=== PATIENT | female | born 1975 | race Caucasian/White ===

== ENCOUNTER 2017-01-29 22:24 | Emergency (ER) | payer OTHER ==
--- NOTE | 2017-01-29 23:00 | ED NURSING NOTES ---
Clinical Report - Nurses [facility] [address] [place] [address] 01/29/2017 22:23 Patient: NELLY SKINNER TRIAGE Triage time 2225. Acuity: LEVEL 4. Chief Complaint: RIGHT UPPER EXTREMITY PAIN. Alert. No acute distress. --22:38 Ramya Florentino 22:32 01/29/17. BP: 155/94. HR: 87. RR: 16. O2 saturation: 96%. Temp: 97.9 F. Pain level now 10. --22:38 Ramya Florentino. Weight: 147.4 kg. Height/Length: 67 inches. BMI: 50.9. --22:38 Ramya Florentino. Medications Albuterol Sulfate HFA Inhalation. Gabapentin Oral (Capsule 100 mg) 1-3 capsules , daily. Naproxen Oral , last dose 1600. --22:34 Ramya Florentino Ketorolac Tromethamine Oral. --22:34 Ramya Florentino Flexeril. --22:35 Ramya Florentino Lisinopril-Hydrochlorothiazide Oral. --22:35 Ramya Florentino Lasix Oral. --22:35 Ramya Florentino. Allergies Darvocet.(vomiting) morphine.(vomiting) Vicodine.(vomiting) --22:34 Ramya Florentino. History Arrived by private vehicle. Historian: patient. Accompanied by family. No injury occurred. This occurred (3 days ago). Provoking / relieving factors: worsened by movement; relieved by not moving. ( acute exacerbation of chronic pain to right shoulder). --22:38 Ramya Florentino. PROBLEMS: Arthritis. Knee Injury. Bronchitis. Hidradenitis Suppurativa. Hypertension. De Quervain's Disease. Abscess. Lifestyle / Substance Problems. Fall. Contusion. Abrasion(s). Asthma. Back Pain. Acute Pain. --22:36 Ramya Florentino. ADDITIONAL SURGERIES: Cholecystectomy. . Hysterectomy. Laparoscopy. Shoulder Surgery. --22:36 Ramya Florentino. Interventions ID band on patient. To treatment room. --22:38 Ramya Florentino. PHYSICAL ASSESSMENT Ambulatory to room. GENERAL / NEURO / PSYCH: Oriented X 4. Alert. Appears in no acute distress. EXTREMITIES: Neuro-vascular status intact to the extremity. No upper extremity edema. Right shoulder: tenderness. Limited ROM due to pain. SKIN: Skin intact. Skin is warm and dry. --22:38 Ramya Florentino. NURSING PROGRESS NOTES Reassurance given. Call light placed in reach. Bed placed in lowest position. Brakes of bed on. Patient ready for evaluation- chart flagged. --22:39 Ramya Florentino. DISPOSITION / DISCHARGE Departure time: 2315. Condition at departure: unchanged and stable. No learning barriers present. Discharge instructions provided and reviewed with the patient. Reviewed medication(s). Patient verbalized understanding. Written instructions provided in Azeri. The patient was discharged by the nurse practitioner. She was discharged home and accompanied by family. She left the Emergency Department ambulatory and via private vehicle. Patient driving. --23:17 Ramya Florentino. Locked/Released at 01/29/2017 23:17 by Ramya Florentino,
--- NOTE | 2017-01-29 23:00 | ED CLINICAL REPORT ---
Clinical Report - Physicians/Mid Levels [facility] [address] [place] [address] 01/29/2017 22:23 Patient: NELLY SKINNER Time Seen: 22:37; initial patient contact, initial documentation, patient care assumed. Arrived- By private vehicle. Historian- patient. HISTORY OF PRESENT ILLNESS Chief Complaint: UPPER EXTREMITY PAIN. Severity is described as being severe. The quality is noted to be "pain" and similar to prior episodes. No radiation. This started about 8 - 9 months ago and is still present. Modifying factors- worsened by movement of arm. Not made better by anything. Symptoms located in the area of the right shoulder. No chest pain, difficulty breathing, swelling, sensory loss or motor loss. No repetitive hand use at work. She has not had redness. (had surgery on shoulder x10 years ago, spur removal, spur found on mri, intermittent issues over the years and pain started back up in May and has gradually gotten worse and tonight couldn't stand the pain, took toradol she had leftover and it didn't help the pain much). Patient denies an injury. Similar symptoms previously: Chronically. Recent medical care: Not recently seen/assessed. REVIEW OF SYSTEMS All systems otherwise negative, except as recorded above. PAST HISTORY See nurses notes. PROBLEMS: Arthritis. Knee Injury. Bronchitis. Hidradenitis Suppurativa. Hypertension. De Quervain's Disease. Abscess. Lifestyle / Substance Problems. Fall. Contusion. Abrasion(s). Asthma. Back Pain. Acute Pain. --22:36 Ramya Florentino. ADDITIONAL SURGERIES: Cholecystectomy. . Hysterectomy. Laparoscopy. Shoulder Surgery. --22:36 Ramya Florentino. SOCIAL HISTORY Never smoker. No alcohol use or drug use. No recent travel. Is a local resident. She lives with spouse. FAMILY HISTORY Negative. ADDITIONAL NOTES The nursing notes have been reviewed with agreement regarding the chief complaint, HPI, ROS, PMH and patient medications and allergies. PHYSICAL EXAM Vital Signs: 01/29/2017 22:32 BP: 155/94. HR: 87. RR: 16. O2 saturation: 96%. Temp: 97.9 F. Have been reviewed as abnormal and appear to be correct. Hypertensive. Heart rate normal. Respiratory rate normal. Temperature normal. Oxygen saturation normal. Appearance: Alert. Oriented X3. No acute distress. Eyes: Pupils equal, round and reactive to light. Eyes normal inspection. Neck: Normal inspection. Neck supple. Respiratory: No respiratory distress. Skin: Skin intact. Skin warm and dry. Normal skin color. Normal skin turgor. Extremities: Upper extremities abnormal to inspection. Upper extremities do not exhibit normal ROM. Upper extremity tenderness. No upper extremity edema. Right shoulder: moderate tenderness located in the acromion process and AC joint. Limited ROM due to pain (diminished abduction, adduction, flexion, extension and external and internal rotation). Neurovascular intact distally. No erythema, swelling, laceration, abrasion or ecchymosis. No puncture wound, foreign body or deformity. No joint effusion. Extremities otherwise negative. Neuro: Oriented X 3. No motor deficit. No sensory deficit. PROGRESS AND PROCEDURES Course of Care: had discussion with pt why substance abuse issues was listed on her hx, pt denies any issues, wants that taken off her chart because she claims it is an error, looked thru some er charts, can't find anything about substance abuse, pt offered uds to prove she was clean, no stacie report found, offered pt pain pill here, she politely declined saying she had to drive so she did not want anything. Patient counseled in person regarding the patient's stable condition and diagnosis. Differential Diagnosis: I considered degenerative joint disease, arthritis, rheumatoid arthritis, gout, hyperextension, rotator cuff tear, acromioclavicular separation, lateral epicondylitis, tendonitis, myositis, fasciitis and bursitis as a possible cause of upper extremity pain in this patient. This is a partial list of diagnoses considered. Above considerations are based on history and physical exam. Differential diagnosis was discussed with patient. Disposition: Discharged home in good and improved condition (23:00). Condition: good and stable. CLINICAL IMPRESSION Chronic upper extremity pain involving the right shoulder. INSTRUCTIONS Warnings: GENERAL WARNINGS: Return or contact your physician immediately if your condition worsens or changes unexpectedly, if not improving as expected, or if other problems arise. Specifically return if problem worsens. Prescription Medications: Ultram 50 mg tablets: take 1-2 orally every 6 hours as needed for pain. Dispense twenty (20). No refills. Substitution is permissible. Follow-up: Follow up with your doctor in about one week even if well. Call for an appointment. Summary of care provided to patient. Screening today revealed the patient's blood pressure to be in the hypertensive range. The patient should follow up with a primary care provider for blood pressure management. Understanding of the discharge instructions verbalized by patient. (Electronically signed by Dipika Street A.R.N.P. 01/30/2017 12:10)
--- NOTE | 2017-01-29 23:00 | ED NURSING NOTES ---
Clinical Report - Nurses [facility] [address] [place] [address] 01/29/2017 22:23 Patient: NELLY SKINNER TRIAGE Triage time 2225. Acuity: LEVEL 4. Chief Complaint: RIGHT UPPER EXTREMITY PAIN. Alert. No acute distress. --22:38 Ramya Florentino 22:32 01/29/17. BP: 155/94. HR: 87. RR: 16. O2 saturation: 96%. Temp: 97.9 F. Pain level now 10. --22:38 Ramya Florentino. Weight: 147.4 kg. Height/Length: 67 inches. BMI: 50.9. --22:38 Ramya Florentino. Medications Albuterol Sulfate HFA Inhalation. Gabapentin Oral (Capsule 100 mg) 1-3 capsules , daily. Naproxen Oral , last dose 1600. --22:34 Ramya Florentino Ketorolac Tromethamine Oral. --22:34 Ramya Florentino Flexeril. --22:35 Ramya Florentino Lisinopril-Hydrochlorothiazide Oral. --22:35 Ramya Florentino Lasix Oral. --22:35 Ramya Florentino. Allergies Darvocet.(vomiting) morphine.(vomiting) Vicodine.(vomiting) --22:34 Ramya Florentino. History Arrived by private vehicle. Historian: patient. Accompanied by family. No injury occurred. This occurred (3 days ago). Provoking / relieving factors: worsened by movement; relieved by not moving. ( acute exacerbation of chronic pain to right shoulder). --22:38 Ramya Florentino. PROBLEMS: Arthritis. Knee Injury. Bronchitis. Hidradenitis Suppurativa. Hypertension. De Quervain's Disease. Abscess. Lifestyle / Substance Problems. Fall. Contusion. Abrasion(s). Asthma. Back Pain. Acute Pain. --22:36 Ramya Florentino. ADDITIONAL SURGERIES: Cholecystectomy. . Hysterectomy. Laparoscopy. Shoulder Surgery. --22:36 Ramya Florentino. Interventions ID band on patient. To treatment room. --22:38 Ramya Florentino. PHYSICAL ASSESSMENT Ambulatory to room. GENERAL / NEURO / PSYCH: Oriented X 4. Alert. Appears in no acute distress. EXTREMITIES: Neuro-vascular status intact to the extremity. No upper extremity edema. Right shoulder: tenderness. Limited ROM due to pain. SKIN: Skin intact. Skin is warm and dry. --22:38 Ramya Florentino. NURSING PROGRESS NOTES Reassurance given. Call light placed in reach. Bed placed in lowest position. Brakes of bed on. Patient ready for evaluation- chart flagged. --22:39 Ramya Florentino. DISPOSITION / DISCHARGE Departure time: 2315. Condition at departure: unchanged and stable. No learning barriers present. Discharge instructions provided and reviewed with the patient. Reviewed medication(s). Patient verbalized understanding. Written instructions provided in Frisian. The patient was discharged by the nurse practitioner. She was discharged home and accompanied by family. She left the Emergency Department ambulatory and via private vehicle. Patient driving. --23:17 Ramya Florentino. Locked/Released at 01/29/2017 23:17 by Ramya Florentino,
--- NOTE | 2017-01-30 12:10 | ED MAR SUMMARY ---
..... Medication Administration Record [facility] [address] [place], [place] [id number] Patient: NELLY SKINNER Visit ID: [id number] 42y, F Weight: 147.4 kg Height/Length: 67 in BMI: 50.9 ALLERGIES: Darvocet, morphine, Vicodine
--- NOTE | 2017-01-30 12:10 | ED MAR SUMMARY ---
..... Medication Administration Record [facility] [address] [place], [place] [id number] Patient: NELLY SKINNER Visit ID: [id number] 42y, F Weight: 147.4 kg Height/Length: 67 in BMI: 50.9 ALLERGIES: Darvocet, morphine, Vicodine
--- NOTE | 2017-01-30 12:10 | ED DISCHARGE INSTRUCTIONS ---
Patient: NELLY SKINNER General Instructions [facility] VisitID: [id number] [place] [address] 42y, F Registration Date/Time: 01/29/2017 Chronic upper extremity pain involving the right shoulder. INSTRUCTIONS Warnings: GENERAL WARNINGS: Return or contact your physician immediately if your condition worsens or changes unexpectedly, if not improving as expected, or if other problems arise. Specifically return if problem worsens. Prescription Medications: Ultram 50 mg tablets: take 1-2 orally every 6 hours as needed for pain. Dispense twenty (20). No refills. Substitution is permissible. Follow-up: Follow up with your doctor in about one week even if well. Call for an appointment. Summary of care provided to patient. Screening today revealed the patient's blood pressure to be in the hypertensive range. The patient should follow up with a primary care provider for blood pressure management. Understanding of the discharge instructions verbalized by patient. ADDITIONAL INFORMATION Shoulder Pain (Uncertain Cause) Shoulder pain often arises from the structures that surround the shoulder joint (the joint capsule, ligaments, tendons, muscles, and bursa). The joint itself contains cartilage that can become worn out or injured and can also be a source of pain. The correct treatment requires knowing the cause of the pain. Sometimes it is difficult to diagnose the exact cause of shoulder pain and referral to a specialist may be required. You may eventually need special tests such as CT scan, MRI, or arthroscopy (a procedure that uses special instruments to look inside the joint through a small incision). Shoulder pain can be treated initially with a sling or shoulder immobilizer and anti-inflammatory medicines such as ibuprofen. Special shoulder exercises may be needed. Follow-up with a specialist is important when pain is severe or does not go away after a few weeks. Home Care: If a sling was provided, leave it in place for the time advised by your doctor. If you are unsure how long to wear it, ask for advice. If the sling becomes loose, adjust it so that your forearm is level with the ground and the shoulder feels well supported. Apply an ice pack (ice cubes in a plastic bag, wrapped in a towel) over the injured area for 20 minutes every 1 to 2 hours the first day for pain relief. Continue this 3 to 4 times a day until the pain and swelling go away. You may use acetaminophen (Tylenol) or ibuprofen (Motrin, Advil) to control pain, unless another pain medicine was prescribed. (NOTE: If you have chronic liver or kidney disease or ever had a stomach ulcer or GI bleeding, talk with your doctor before using these medicines.) Shoulder pain may seem worse at night, when there is less to distract you from the pain. If you sleep on your side, try to keep your weight off your painful shoulder. Propping pillows behind you may prevent you from rolling over onto that shoulder during sleep. Shoulder joints become stiff if left in a sling for too long. [id number] exercises should usually be started within the first 10 days after injury. Consult your doctor on what type of exercises to do and how soon to start. You may remove the sling to shower or bathe. Follow Up with your doctor, or as advised by our staff, if you are not starting to improve within the next 5 days. Get Prompt Medical Attention if any of the following occur: Pain or swelling increases Hand or fingers becomes cold, blue, numb, or tingly Large amount of bruising of the shoulder or upper arm Tramadol Hydrochloride Oral tablet What is this medicine? TRAMADOL (TRA ma dole) is a pain reliever. It is used to treat moderate to severe pain in adults. How should I use this medicine? Take this medicine by mouth with a full glass of water. Follow the directions on the prescription label. If the medicine upsets your stomach, take it with food or milk. Do not take more medicine than you are told to take. Talk to your oil well service operator helper regarding the use of this medicine in children. Special care may be needed. What side effects may I notice from receiving this medicine? Side effects that you should report to your doctor or health childcare aide as soon as possible: allergic reactions like skin rash, itching or hives, swelling of the face, lips, or tongue breathing difficulties, wheezing confusion itching light headedness or fainting spells redness, blistering, peeling or loosening of the skin, including inside the mouth seizures Side effects that usually do not require medical attention (report to your doctor or health childcare aide if they continue or are bothersome): constipation dizziness drowsiness headache nausea, vomiting What may interact with this medicine? Do not take this medicine with any of the following medications: MAOIs like Carbex, Eldepryl, Marplan, Nardil, and Parnate This medicine may also interact with the following medications: alcohol or medicines that contain alcohol antihistamines benzodiazepines bupropion carbamazepine or oxcarbazepine clozapine cyclobenzaprine digoxin furazolidone linezolid medicines for depression, anxiety, or psychotic disturbances medicines for migraine headache like almotriptan, eletriptan, frovatriptan, naratriptan, rizatriptan, sumatriptan, zolmitriptan medicines for pain like pentazocine, buprenorphine, butorphanol, meperidine, nalbuphine, and propoxyphene medicines for sleep muscle relaxants naltrexone phenobarbital phenothiazines like perphenazine, thioridazine, chlorpromazine, mesoridazine, fluphenazine, prochlorperazine, promazine, and trifluoperazine procarbazine warfarin What if I miss a dose? If you miss a dose, take it as soon as you can. If it is almost time for your next dose, take only that dose. Do not take double or extra doses. Where should I keep my medicine? Keep out of the reach of children. Store at room temperature between 15 and 30 degrees C (59 and 86 degrees F). Keep container tightly closed. Throw away any unused medicine after the expiration date. What should I tell my health care provider before I take this medicine? They need to know if you have any of these conditions: brain tumor depression drug abuse or addiction head injury if you frequently drink alcohol containing drinks kidney disease or trouble passing urine liver disease lung disease, asthma, or breathing problems seizures or epilepsy suicidal thoughts, plans, or attempt; a previous suicide attempt by you or a family member an unusual or allergic reaction to tramadol, codeine, other medicines, foods, dyes, or preservatives or trying to get breast-feeding What should I watch for while using this medicine? Tell your doctor or health childcare aide if your pain does not go away, if it gets worse, or if you have new or a different type of pain. You may develop tolerance to the medicine. Tolerance means that you will need a higher dose of the medicine for pain relief. Tolerance is normal and is expected if you take this medicine for a long time. Do not suddenly stop taking your medicine because you may develop a severe reaction. Your body becomes used to the medicine. This does NOT mean you are addicted. Addiction is a behavior related to getting and using a drug for a non-medical reason. If you have pain, you have a medical reason to take pain medicine. Your doctor will tell you how much medicine to take. If your doctor wants you to stop the medicine, the dose will be slowly lowered over time to avoid any side effects. You may get drowsy or dizzy. Do not drive, use machinery, or do anything that needs mental alertness until you know how this medicine affects you. Do not stand or sit up quickly, especially if you are an older patient. This reduces the risk of dizzy or fainting spells. Alcohol can increase or decrease the effects of this medicine. Avoid alcoholic drinks. You may have constipation. Try to have a bowel movement at least every 2 to 3 days. If you do not have a bowel movement for 3 days, call your doctor or health childcare aide. Your mouth may get dry. Chewing sugarless gum or sucking hard candy, and drinking plenty of water may help. Contact your doctor if the problem does not go away or is severe. You have been given the following additional information: Shoulder Pain (Uncertain Cause) Tramadol Hydrochloride Oral tablet (Electronically signed by Dipika Street A.R.N.P. 01/30/2017 12:10)
--- NOTE | 2017-01-30 12:11 | ED MED RECONCILIATION SUMMARY ---
Patient: NELLY SKINNER Medication Reconciliation Report [facility] VisitID: [id number] [address] [place] [address] 42y, F Registration Date/Time: 01/29/2017 Weight: 147.4 kg Height/Length: 67 in. BMI: 50.9 ALLERGIES: Darvocet, morphine, Vicodine The patient's Home Medications are listed below: THE FOLLOWING MEDICATIONS NEED TO BE RECONCILED: Albuterol Sulfate HFA Inhalation Flexeril Gabapentin Oral (100 mg) 1-3 capsules , daily Ketorolac Tromethamine Oral Lasix Oral Lisinopril-Hydrochlorothiazide Oral Naproxen Oral , last dose: 1600 The source(s) of the original Home Medication information: Not obtained. The following Medications were given to the patient in the Emergency Department: None. The following Medications were prescribed to the patient: Ultram 50 mg tablets: take 1-2 orally every 6 hours as needed for pain. Dispense twenty (20). No refills. Substitution is permissible. -- Dipika Street A.R.N.P.
--- NOTE | 2017-01-30 12:11 | ED MED RECONCILIATION SUMMARY ---
Patient: NELLY SKINNER Medication Reconciliation Report [facility] VisitID: [id number] [address] [place] [address] 42y, F Registration Date/Time: 01/29/2017 Weight: 147.4 kg Height/Length: 67 in. BMI: 50.9 ALLERGIES: Darvocet, morphine, Vicodine The patient's Home Medications are listed below: THE FOLLOWING MEDICATIONS NEED TO BE RECONCILED: Albuterol Sulfate HFA Inhalation Flexeril Gabapentin Oral (100 mg) 1-3 capsules , daily Ketorolac Tromethamine Oral Lasix Oral Lisinopril-Hydrochlorothiazide Oral Naproxen Oral , last dose: 1600 The source(s) of the original Home Medication information: Not obtained. The following Medications were given to the patient in the Emergency Department: None. The following Medications were prescribed to the patient: Ultram 50 mg tablets: take 1-2 orally every 6 hours as needed for pain. Dispense twenty (20). No refills. Substitution is permissible. -- Dipika Street A.R.N.P.
== END 2017-01-29 23:15 | disposition home or self-care (01) ==
LOC: ED SRH 22:24
DX: G89.29 Other chronic pain (principal); M25.511 Pain in right shoulder; I10 Essential (primary) hypertension; Z98.890 Other specified postprocedural states